=== PATIENT | male | born 1995 | race American Indian/Alaskan Native ===

== ENCOUNTER 2017-03-02 12:25 | Emergency (ER) | payer SELFPAY ==
[2017-03-02 12:34] VITALS: BP 136/85
--- NOTE | 2017-03-02 12:55 | Emergency Department Report ---
ED Head Injury/Laceration HPI - HPI Location: Parietal Pain: Mild Tetanus Status: Up to Date Symptoms: Loss of Consciousness: No, Nausea: No, Blurred Vision: No, Unusual Behavior: No, Headache: No, Swelling: No, Bruising: No, Break in Skin: Yes, Bleeding: Yes ED General PMH - Social History Smoking Status: Current Every Day Smoker ED Review of Systems ROS: Stated complaint: HEAD LAC Other details as noted in HPI Constitutional: denies: chills, fever Eyes: denies: eye pain, eye discharge, vision change ENT: denies: ear pain, throat pain Respiratory: denies: cough, shortness of breath, wheezing Cardiovascular: denies: syncope Skin: other (laceration) Neurological: denies: headache, weakness, numbness, paresthesias, confusion, abnormal gait, vertigo Head Inj w/lac Physical Exam - Exam General: Vital signs noted. No distress. Alert and acting appropriately. Head: No PERRL, No Hemotympanum, No Hematoma/Ecchymosis, No Epistaxis, No Stepoff/Deformity, No Abrasion, No Foreign Body Chest, Abd, & Ext: No Neck Pain, No Clear Lung Sounds, No Chest Injury/Pain, No Regular Heart Rhythm, No Heart Murmur, No Abdominal Tenderness, No Back Tenderness, No Extremity Injury Neuroligical (Head Inj W/O Lac: No Lethargy, No Disorientation, No Focal Numbness, No Focal Weakness, No Normal Speech, No Normal Gait Exam: 4 cm linear scalp laceration, hemostatic, clean, neurovascular intact surrounding, good 2 point discrimination. - Laceration /Wound Repair Parietal Wound Location: head Wound's Depth, Shape: linear Betadine Prep?: Yes Number of Sutures: 9 (tables) Sterile Dressing Applied?: Yes Progress: Patient deferring local anesthetic, laceration cleaned 3 times with Betadine. Treated aseptic fashion. 9 vernon placed with good approximation. Patient tolerated procedure well. Topical antibiotic and dressing placed afterwards. ED Disposition Clinical Impression: Scalp laceration, Head injury, acute, without loss of consciousness Disposition: DISCHARGED TO HOME OR SELFCARE Is pt being admited?: No Condition: Stable Instructions: Minor Head Injury (ED), Staple Care (ED), Acute Wound Care (ED) Prescriptions: Bacitracin/Polymixin B [Polysporin] 1 applicatio TP BID #1 tube Ibuprofen [Motrin] 800 mg PO Q8HR PRN #20 tablet PRN Reason: Pain Referrals: PRIMARY CARE, [Primary Care Provider] - 3-5 Days Forms: Work/School Release Form(ED)
[2017-03-02] MEDS ORDERED: TRIPLE ANTIBIOTIC TP ONE (13:22)
--- NOTE | 2017-03-02 13:24 | Emergency Department Report ---
Entered by EDWIN MAJOR, acting as scribe for MARKEL SOTO PA. ED Head Injury/Laceration HPI - HPI Mechanism: Fall (fell down 6 stairs) Location: Frontal Pain: Moderate (/10) Tetanus Status: Unknown Symptoms: Loss of Consciousness: No, Nausea: No, Blurred Vision: No, Unusual Behavior: No, Headache: No, Swelling: No, Bruising: No, Break in Skin: No, Bleeding: Yes (minimal) Other History: 21 y/o male with no significant PMHx c/o a laceration to top of head secondary to a fall that occurred today. Patient states he fell down 6 stairs denies any loss of consciousness, neck pain, blurred vision, or nausea vomiting. ED General PMH - Social History Smoking Status: Current Every Day Smoker ED Review of Systems ROS: Stated complaint: HEAD LAC Other details as noted in HPI Head Inj w/lac Physical Exam - Exam General: Vital signs noted. No distress. Alert and acting appropriately. ED Disposition Clinical Impression: Scalp laceration, Head injury, acute, without loss of consciousness Disposition: DISCHARGED TO HOME OR SELFCARE Is pt being admited?: No Condition: Stable Instructions: Minor Head Injury (ED), Acute Wound Care (ED), Staple Care (ED) Prescriptions: Bacitracin/Polymixin B [Polysporin] 1 applicatio TP BID #1 tube Ibuprofen [Motrin] 800 mg PO Q8HR PRN #20 tablet PRN Reason: Pain Referrals: PRIMARY CARE,MD [Primary Care Provider] - 3-5 Days Forms: Work/School Release Form(ED) This documentation as recorded by the scribe,EDWIN MAJOR,accurately reflects the service I personally performed and the decisions made by me,MARKEL SOTO PA.
== END 2017-03-02 13:32 | disposition home or self-care (01) ==
LOC: ED 12:25
DX: S01.01XA Laceration without foreign body of scalp, initial encounter (principal); F17.200 Nicotine dependence, unspecified, uncomplicated; W10.8XXA Fall (on) (from) other stairs and steps, initial encounter; Y93.89 Activity, other specified; Y99.9 Unspecified external cause status; Y92.89 Other specified places as the place of occurrence of the external cause
CPT/HCPCS: 99282; A6250

== ENCOUNTER 2017-03-09 12:24 | Emergency (ER) | payer SELFPAY ==
[2017-03-09 12:35] VITALS: BP 116/68
--- NOTE | 2017-03-09 13:57 | Emergency Department Report ---
Suture/Staple Removal - [facility] Chief Complaint: Laceration/Recheck/Suture Stated Complaint: VERNON REMOVED Time Seen by Provider: 03/09/17 13:35 When Sutures or [place] Placed: 8-10 Days Ago Wound Location: scalp ED Review of Systems ROS: Stated complaint: VERNON REMOVED Other details as noted in HPI Constitutional: denies: chills, fever Eyes: denies: eye pain, eye discharge, vision change ENT: denies: ear pain, throat pain Respiratory: denies: cough, shortness of breath, wheezing Cardiovascular: denies: chest pain, palpitations Endocrine: no symptoms reported Gastrointestinal: denies: abdominal pain, nausea, diarrhea Genitourinary: denies: urgency, dysuria Musculoskeletal: denies: back pain, joint swelling, arthralgia Skin: denies: rash, lesions Neurological: denies: headache, weakness, paresthesias Psychiatric: denies: anxiety, depression Hematological/Lymphatic: denies: easy bleeding, easy bruising ED Past Medical Hx - Past Medical History Additional medical history: head lac - Surgical History Additional Surgical History: Left pelvic plate removed - Social History Smoking Status: Current Every Day Smoker Substance Use Type: Alcohol - Medications Home Medications: Home Medications Medication Instructions Recorded Confirmed Last Taken Type Bacitracin/Polymixin B [Polysporin] 1 applicatio TP BID #1 tube 03/02/17 Unknown Rx Ibuprofen [Motrin] 800 mg PO Q8HR PRN #20 tablet 03/02/17 Unknown Rx Suture Removal Exam - Exam General: Vital signs noted. No distress. Alert and acting appropriately. 7 intact skin vernon noted to her right superior parietal scalp. Non- erythematous, nontender, good skin closure. Wound: No Tenderness, No Drainage, No Pus, No Wound Dehiscence Other Systems: All other systems reviewed and are unremarkable. ED Course Vital Signs 03/09/17 12:32 Temperature 98.3 F Pulse Rate 91 H Respiratory 16 Rate Blood Pressure 116/68 O2 Sat by Pulse 96 Oximetry ED Recheck MDM - Medical Decision Making Patient is nontoxic and hemodynamically stable. I removed all 7 remaining skin vernon without any complications. Patient tolerated procedure very well. Wound looks very good and noninfected. Patient is stable for discharge. Critical care attestation.: If time is entered above; I have spent that time in minutes in the direct care of this critically ill patient, excluding procedure time. ED Disposition Clinical Impression: Encounter for staple removal Disposition: DISCHARGED TO HOME OR SELFCARE Is pt being admited?: No Does the pt Need Aspirin: No Condition: Good Instructions: Staple Care (ED) Referrals: PRIMARY CARE, [Primary Care Provider] - 3-5 Days Time of Disposition: 13:56
== END 2017-03-09 14:16 | disposition home or self-care (01) ==
LOC: ED 12:24
DX: Z48.02 Encounter for removal of sutures (principal); Z53.21 Procedure and treatment not carried out due to patient leaving prior to being seen by health care provider